=== PATIENT | female | born 1995 | race Two or more races ===

== ENCOUNTER 2018-11-13 16:10 | Observation (INO) | payer MEDICAID ==
[2018-11-13] MEDS ORDERED: LORA-622 PO (16:35)
[2018-11-13] MEDS ORDERED: PREN-145 OR (16:35)
== END 2018-11-13 20:13 | disposition home or self-care (01) | DRG 566 ==
LOC: LDRP 16:10
PROVIDERS: ADMIT Obstetrics & Gynecology; ATTEND Obstetrics & Gynecology
DX: O99.282 Endocrine, nutritional and metabolic diseases complicating pregnancy, second trimester (principal); E86.0 Dehydration; O99.89 Other specified diseases and conditions complicating pregnancy, childbirth and the puerperium; M54.9 Dorsalgia, unspecified; R10.2 Pelvic and perineal pain; Z3A.20 20 weeks gestation of pregnancy
CPT/HCPCS: 59025; 76815; 76817; 81002; G0378

== ENCOUNTER 2018-11-14 11:56 | Emergency (ER) | payer MEDICAID ==
[~2018-11-14] VITALS: Ht 157.5 cm; Wt 97.1 kg
[~2018-11-14 11:56] MED LIST: LORA-622 PO; PREN-145 OR
[2018-11-14 12:31] LABS: Basophils # (auto) 0 uL; Basophils % (auto) 0.1 % (0.0-2.0); Eosinophils # (auto) 0.1 uL; Hematocrit 36.2 % (36.0-46.0); Hemoglobin 12.5 g/dL (12.2-16.2); Lymphocytes # (auto) 1.2 uL; Mean Corpuscular Hemoglobin 30.4 pg (28.0-32.0); Mean Corpuscular Hgb Conc. 34.5 g/dL (32.0-36.0); Mean Corpuscular Volume 88.2 fL (80.0-100.0); Monocytes # (auto) 0.4 uL; Monocytes % (auto) 3.9 % (0.0-12.0); Neutrophils # (auto) 8.6 uL; Platelet Count (auto) 203 10^3/uL (140-450); Red Blood Cells 4.11 10^6/uL (4.0-5.20); White Blood Cell 10.4 10^3/uL (4.4-10.8)
[2018-11-14 12:46] LABS: Albumin 2.7 g/dL (3.4-5.0); Calcium 8.4 mg/dL (8.5-10.1); Potassium 3.9 mmol/L (3.5-5.1)
[2018-11-14 12:49] LABS: BUN/Creatinine Ratio 9.1; Bilirubin, Total 0.5 mg/dL (0.2-1.0); Total Protein 6.6 g/dL (6.4-8.2)
[2018-11-14 13:01] LABS: Urine Bacteria FEW /hpf (None Seen); Urine Blood Negative /uL (Negative); Urine Mucus FEW (None Seen); Urine WBC 1 /hpf (0 - 5)
[2018-11-14] MEDS ORDERED: ONDANSETRON HCL 4 MG/2 ML VIAL IV ONE (13:45)
[2018-11-14] MEDS ORDERED: SODIUM CHLORIDE 0.9% 1,000 ML IV ONE ×2 (13:45→15:00)
[2018-11-14 16:30] VITALS: BP 94/53
== END 2018-11-14 16:57 | disposition home or self-care (01) ==
LOC: ER 11:56
DX: O21.8 Other vomiting complicating pregnancy (principal); O99.282 Endocrine, nutritional and metabolic diseases complicating pregnancy, second trimester; E86.0 Dehydration; O46.92 Antepartum hemorrhage, unspecified, second trimester; Z3A.20 20 weeks gestation of pregnancy
CPT/HCPCS: 36415; 80053; 81001; 84702; 85025; 96361; 96374; 99283; J2405; J7030

== ENCOUNTER 2018-11-24 11:41 | Observation (INO) | payer MEDICAID | END 2018-11-24 12:32 | disposition home or self-care (01) | DRG 566 | LOC: LDRP 11:41 | PROVIDERS: ADMIT Obstetrics & Gynecology; ATTEND Obstetrics & Gynecology | DX: O36.8120 Decreased fetal movements, second trimester, not applicable or unspecified (principal); O26.892 Other specified pregnancy related conditions, second trimester; R51 Headache; Z3A.21 21 weeks gestation of pregnancy | CPT/HCPCS: 59025; 81002; G0378 ==

== ENCOUNTER 2019-02-04 08:34 | Observation (INO) | payer MEDICAID | END 2019-02-04 09:42 | disposition home or self-care (01) | DRG 566 | LOC: LDRP 08:34 | PROVIDERS: ADMIT Specialist; ATTEND Specialist | DX: O26.893 Other specified pregnancy related conditions, third trimester (principal); Z3A.32 32 weeks gestation of pregnancy | CPT/HCPCS: 59025; 76818; 81002; G0378 ==

== ENCOUNTER 2019-02-09 15:46 | Observation (INO) | payer MEDICAID ==
[~2019-02-09] VITALS: Ht 188 cm; Wt 95.3 kg
[2019-02-09] MEDS ORDERED: TERBUTALINE SULFATE 1 MG/ML 1ML VIAL SC SCH (17:30)
[2019-02-09] MEDS ORDERED: LACTATED RINGER'S 1,000 ML IV ONE (17:30)
== END 2019-02-09 18:45 | disposition home or self-care (01) | DRG 566 ==
LOC: LDRP 15:46
PROVIDERS: ADMIT Specialist; ATTEND Specialist
DX: O36.1930 Maternal care for other isoimmunization, third trimester, not applicable or unspecified (principal); O26.893 Other specified pregnancy related conditions, third trimester; N89.8 Other specified noninflammatory disorders of vagina; Z3A.35 35 weeks gestation of pregnancy
CPT/HCPCS: 59025; 76818; 81002; 96372; G0378; J3105; 96365; 96366

== ENCOUNTER 2019-02-12 16:24 | Observation (INO) | payer MEDICAID | END 2019-02-12 17:50 | disposition home or self-care (01) | DRG 566 | LOC: LDRP 16:24 | PROVIDERS: ADMIT Obstetrics & Gynecology; ATTEND Obstetrics & Gynecology | DX: O26.893 Other specified pregnancy related conditions, third trimester (principal); Z3A.33 33 weeks gestation of pregnancy | CPT/HCPCS: 59025; 76818; 81002; G0378 ==

== ENCOUNTER 2019-02-13 17:15 | Observation (INO) | payer MEDICAID | END 2019-02-13 22:07 | disposition other institution (70) | DRG 566 | LOC: LDRP 17:15 | PROVIDERS: ADMIT Specialist; ATTEND Specialist | DX: O26.893 Other specified pregnancy related conditions, third trimester (principal); H53.8 Other visual disturbances; R10.30 Lower abdominal pain, unspecified; R42 Dizziness and giddiness; R11.0 Nausea; R51 Headache; Z3A.33 33 weeks gestation of pregnancy | CPT/HCPCS: 59025; 82962; G0378 ==

== ENCOUNTER 2019-02-13 22:27 | Emergency (ER) | payer MEDICAID ==
[~2019-02-13] VITALS: Ht 157.5 cm; Wt 95.3 kg
[2019-02-13 22:28] VITALS: BP 129/87
[2019-02-13 22:56] LABS: Basophils # (auto) 0.1 uL; Basophils % (auto) 0.6 % (0.0-2.0); Eosinophils # (auto) 0.1 uL; Eosinophils % (auto) 1.4 % (0.0-7.0); Hematocrit 36.9 % (36.0-46.0); Hemoglobin 12.5 g/dL (12.2-16.2); Lymphocytes # (auto) 2.4 uL; Lymphocytes % (auto) 24.3 % (10.0-50.0); Mean Corpuscular Hgb Conc. 33.8 g/dL (32.0-36.0); Mean Corpuscular Volume 88.6 fL (80.0-100.0); Monocytes # (auto) 0.5 uL; Monocytes % (auto) 5.6 % (0.0-12.0); Neutrophils # (auto) 6.6 uL; Neutrophils % (auto) 68.1 % (37.0-80.0); Nucleated Red Blood Cells % 0.1 %; Platelet Count (auto) 188 10^3/uL (140-450); Red Blood Cells 4.17 10^6/uL (4.0-5.20); Red Cell Distribution Width 13.7 % (11.8-14.3); White Blood Cell 9.7 10^3/uL (4.4-10.8)
[2019-02-13 23:12] LABS: Albumin 2.5 g/dL (3.4-5.0); BUN/Creatinine Ratio 9.6; Calcium 8.8 mg/dL (8.5-10.1)
[2019-02-13 23:14] LABS: Bilirubin, Total 0.3 mg/dL (0.2-1.0); Total Protein 6.6 g/dL (6.4-8.2)
[2019-02-13 23:25] LABS: Urine Bacteria NONE SEEN /hpf (None Seen); Urine Blood Negative /uL (Negative); Urine Specific Gravity 1.005 (1.001-1.035); Urine WBC 1 /hpf (0 - 5)
== END 2019-02-13 23:56 | disposition left against medical advice (07) ==
LOC: ER 22:35
DX: R42 Dizziness and giddiness (principal); R51 Headache; Z53.21 Procedure and treatment not carried out due to patient leaving prior to being seen by health care provider
CPT/HCPCS: 36415; 80053; 81001; 85025; 93005

== ENCOUNTER 2019-02-16 16:30 | Observation (INO) | payer MEDICAID | END 2019-02-16 17:15 | disposition home or self-care (01) | DRG 566 | LOC: LDRP 16:30 | PROVIDERS: ADMIT Obstetrics & Gynecology; ATTEND Obstetrics & Gynecology | DX: O36.1130 Maternal care for Anti-A sensitization, third trimester, not applicable or unspecified (principal); O26.893 Other specified pregnancy related conditions, third trimester; N89.8 Other specified noninflammatory disorders of vagina; Z3A.33 33 weeks gestation of pregnancy | CPT/HCPCS: 59025; 76818; 81002; G0378 ==

== ENCOUNTER 2019-02-19 13:44 | Observation (INO) | payer MEDICAID ==
[2019-02-19] MEDS ORDERED: CEFTRIAXONE SODIUM 2 GM in D5W 5% 50 ML IV ONE (15:15)
== END 2019-02-19 17:30 | disposition home or self-care (01) | DRG 566 ==
LOC: LDRP 13:44
PROVIDERS: ADMIT Specialist; ATTEND Specialist
DX: O62.9 Abnormality of forces of labor, unspecified (principal); Z3A.34 34 weeks gestation of pregnancy
CPT/HCPCS: 59025; 76818; 81002; 96365; G0378; J0696; J7060; 96361

== ENCOUNTER 2019-02-23 15:39 | Observation (INO) | payer MEDICAID | END 2019-02-23 17:30 | disposition home or self-care (01) | DRG 566 | LOC: LDRP 15:39 | PROVIDERS: ADMIT Specialist; ATTEND Specialist | DX: O36.1930 Maternal care for other isoimmunization, third trimester, not applicable or unspecified (principal); O62.9 Abnormality of forces of labor, unspecified; Z3A.34 34 weeks gestation of pregnancy | CPT/HCPCS: 59025; 76818; 81002; G0378 ==

== ENCOUNTER 2019-02-26 11:31 | Observation (INO) | payer MEDICAID | END 2019-02-27 18:20 | disposition home or self-care (01) | DRG 566 | LOC: LDRP 02-27 15:49 | PROVIDERS: ADMIT Specialist; ATTEND Specialist | DX: O36.1930 Maternal care for other isoimmunization, third trimester, not applicable or unspecified (principal); Z3A.35 35 weeks gestation of pregnancy | CPT/HCPCS: 59025; 76818; 81002; G0378 ==

== ENCOUNTER 2019-03-02 16:00 | Observation (INO) | payer MEDICAID ==
[~2019-03-02] VITALS: Ht 157.5 cm; Wt 97.1 kg
[2019-03-02] MEDS ORDERED: TERBUTALINE SULFATE 1 MG/ML 1ML VIAL SC SCH (17:30)
== END 2019-03-02 19:00 | disposition home or self-care (01) | DRG 566 ==
LOC: LDRP 16:00
PROVIDERS: ADMIT Obstetrics & Gynecology; ATTEND Obstetrics & Gynecology
DX: O62.9 Abnormality of forces of labor, unspecified (principal); O28.3 Abnormal ultrasonic finding on antenatal screening of mother; Z3A.35 35 weeks gestation of pregnancy
CPT/HCPCS: 59025; 76818; 81002; 96372; G0378; J3105

== ENCOUNTER 2019-03-04 18:20 | Observation (INO) | payer MEDICAID ==
[~2019-03-04] VITALS: Ht 157.5 cm; Wt 97.1 kg
[~2019-03-04 18:20] MED LIST changes: -LORA-622 PO
[2019-03-04] MEDS ORDERED: TERBUTALINE SULFATE 1 MG/ML 1ML VIAL SC SCH (18:30)
[2019-03-04] MEDS ORDERED: BETAMETHASONE ACET (6MG/ML) 5ML VIAL ONE (18:54)
[2019-03-04] MEDS ORDERED: TERBUTALINE SULFATE 1 MG/ML 1ML VIAL SC ONE (18:54)
[2019-03-04] MEDS ORDERED: BETAMETHASONE ACET (6MG/ML) 5ML VIAL IM SCH (19:00)
[2019-03-05] MEDS ORDERED: BETAMETHASONE ACET (6MG/ML) 5ML VIAL IM SCH (10:00)
[2019-03-05] MEDS ORDERED: NIF10C GT (16:52)
== END 2019-03-04 19:46 | disposition home or self-care (01) | DRG 563 ==
LOC: LDRP 18:20
PROVIDERS: ADMIT Obstetrics & Gynecology; ATTEND Obstetrics & Gynecology
DX: O60.03 Preterm labor without delivery, third trimester (principal); O26.893 Other specified pregnancy related conditions, third trimester; N89.8 Other specified noninflammatory disorders of vagina; Z3A.36 36 weeks gestation of pregnancy
CPT/HCPCS: 59025; 81002; 96372; G0378; J0702; J3105

== ENCOUNTER 2019-03-05 13:00 | Observation (INO) | payer MEDICAID ==
[~2019-03-05] VITALS: Ht 30.5 cm; Wt 0.5 kg
[2019-03-05] MEDS ORDERED: BETAMETHASONE ACET (6MG/ML) 5ML VIAL IM ONE (13:15)
[2019-03-05] MEDS ORDERED: LACTATED RINGER'S 1,000 ML IV ONE (13:37)
[2019-03-05] MEDS ORDERED: TERBUTALINE SULFATE 1 MG/ML 1ML VIAL SC ONE (13:44)
[2019-03-05] MEDS ORDERED: TERBUTALINE SULFATE 1 MG/ML 1ML VIAL SC SCH (13:45)
[2019-03-05] MEDS ORDERED: NIFEdipine 10 MG CAP PO ONE (14:45)
[2019-03-05] MEDS ORDERED: NIFEdipine 10 MG CAP ONE (14:49)
[2019-03-05] MEDS ORDERED: NIF10C GT (16:52)
== END 2019-03-05 15:40 | disposition home or self-care (01) | DRG 566 ==
LOC: LDRP 13:00
PROVIDERS: ADMIT Specialist; ATTEND Specialist
DX: O62.9 Abnormality of forces of labor, unspecified (principal); Z3A.36 36 weeks gestation of pregnancy
CPT/HCPCS: 59025; 76818; 81002; 96372; G0378; J3105

== ENCOUNTER 2019-03-09 15:57 | Observation (INO) | payer MEDICAID ==
[~2019-03-09 15:57] MED LIST changes: +NIF10C GT
== END 2019-03-09 17:10 | disposition home or self-care (01) | DRG 563 ==
LOC: LDRP 15:57
PROVIDERS: ADMIT Specialist; ATTEND Specialist
DX: O60.03 Preterm labor without delivery, third trimester (principal); O26.893 Other specified pregnancy related conditions, third trimester; R11.0 Nausea; Z3A.36 36 weeks gestation of pregnancy
CPT/HCPCS: 59025; 76818; 81002; G0378

== ENCOUNTER 2019-03-10 15:45 | Inpatient (IN) | payer MEDICAID ==
[~2019-03-10] VITALS: Ht 1 cm; Wt 0.5 kg
[2019-03-10] MEDS ORDERED: LACTATED RINGER'S 1,000 ML IV ONE ×2 (16:55→19:15)
[2019-03-10] MEDS ORDERED: NIFEdipine 10 MG CAP PO ONE (16:55)
[2019-03-10] MEDS: NIFEdipine 10 MG CAP PO SCH (21:16)
[2019-03-10] MEDS ORDERED: LACTATED RINGER'S 1,000 ML IV SCH (21:30)
[2019-03-10 21:39] LABS: Basophils # (auto) 0 uL; Basophils % (auto) 0.3 % (0.0-2.0); Eosinophils # (auto) 0.1 uL; Eosinophils % (auto) 0.6 % (0.0-7.0); Hematocrit 35.8 % (36.0-46.0); Hemoglobin 11.8 g/dL (12.2-16.2); Lymphocytes % (auto) 22.4 % (10.0-50.0); Mean Corpuscular Hemoglobin 28.6 pg (28.0-32.0); Mean Corpuscular Hgb Conc. 33.1 g/dL (32.0-36.0); Mean Corpuscular Volume 86.6 fL (80.0-100.0); Monocytes # (auto) 0.7 uL; Neutrophils # (auto) 9.5 uL; Neutrophils % (auto) 71.7 % (37.0-80.0); Platelet Count (auto) 188 10^3/uL (140-450); Red Blood Cells 4.14 10^6/uL (4.0-5.20); Red Cell Distribution Width 13.9 % (11.8-14.3); White Blood Cell 13.2 10^3/uL (4.4-10.8)
[2019-03-10 21:52] LABS: Albumin 2.4 g/dL (3.4-5.0); Calcium 8.1 mg/dL (8.5-10.1); Potassium 3.8 mmol/L (3.5-5.1)
[2019-03-10 21:53] LABS: INR < 0.93 (0.9-1.15); Partial Thromboplastin Time 27.3 sec (23.64-32.05)
[2019-03-10 21:55] LABS: Bilirubin, Total 0.4 mg/dL (0.2-1.0); Total Protein 6.4 g/dL (6.4-8.2)
[2019-03-10 22:28] LABS: Urine Bacteria FEW /hpf (None Seen); Urine Blood 3+ /uL (Negative); Urine Specific Gravity 1.012 (1.001-1.035); Urine WBC 47 /hpf (0 - 5)
[2019-03-10] MEDS ORDERED: TERBUTALINE SULFATE 1 MG/ML 1ML VIAL SC ONE (23:30)
[2019-03-10] MEDS ORDERED: cefTRIAXone 1GM/50ML D5W 50 ML IV SCH (23:45)
[2019-03-11] VITALS (15 sets, daily range): BP systolic 93–111; BP diastolic 50–78
[2019-03-11] MEDS: NIFEdipine 10 MG CAP PO SCH ×2 (01:31→06:08)
[2019-03-11 02:39] LABS: Alcohol, Urine < 3.0 mg/dL (0-5); Amphetamine Screen, Urine NEGATIVE (NEGATIVE); Barbiturate Scree,Urine NEGATIVE (NEGATIVE); Benzodiazephine Screen, Urine NEGATIVE (NEGATIVE); Cannabinoid Screen, Urine NEGATIVE (NEGATIVE); Cocaine Screen, Urine NEGATIVE (NEGATIVE); Opiate Scree,Urine NEGATIVE (NEGATIVE); Phencyclidine Screen, Urine NEGATIVE (NEGATIVE)
[2019-03-11] MEDS ORDERED: TETRACAINE 1% INJ 2 ML VIAL IJ ONE (08:14)
[2019-03-11] MEDS ORDERED: MORPHINE SULF(PF) 0.5MG/ML 10ML VIAL ONE (08:49)
[2019-03-11] MEDS ORDERED: ePHEDrine SULFATE 50 MG/ML AMP ONE (08:50)
[2019-03-11] MEDS ORDERED: PHENYLEPHRINE HCL 10 MG/ML VL ONE (08:50)
[2019-03-11] MEDS ORDERED: OXYTOCIN 10 UNIT/ML 10ML VIAL ONE (08:51)
[2019-03-11] MEDS ORDERED: cefTRIAXone 1GM/50ML D5W 50 ML IV ONE (08:55)
[2019-03-11] MEDS ORDERED: cefTRIAXone SOD 1,000 MG VL ONE (08:55)
[2019-03-11] MEDS ORDERED: METOCLOPRAMIDE HCL 5MG/ml INJ 2ml VIAL ONE (09:26)
[2019-03-11] MEDS ORDERED: MIDAZOLAM HCL 1MG/1ML-2 ML VIAL ONE (09:39)
[2019-03-11] MEDS ORDERED: LACTATED RINGER'S 1,000 ML IV SCH (10:19)
[2019-03-11] MEDS ORDERED: diphenhdrAMINE HCL 50 MG/1 ML VL IV PRN (10:30)
[2019-03-11] MEDS ORDERED: ONDANSETRON HCL 4 MG/2 ML VIAL IV PRN ×3 (10:30)
[2019-03-11] MEDS ORDERED: ePHEDrine SULFATE 50 MG/ML AMP IV PRN (10:30)
[2019-03-11] MEDS ORDERED: NALOXONE HCL 0.4 MG/ML VIAL IV PRN ×2 (10:30)
[2019-03-11] MEDS ORDERED: ACETAMINOPHEN IV 1000 MG/100ML (10MG/ML) IV ONE ×2 (10:30→12:30)
[2019-03-11] MEDS ORDERED: HYDROmorphone HCL 2 MG/ML VL IV PRN ×2 (10:30)
[2019-03-11] MEDS ORDERED: KETOROLAC TROMETH 30 MG/ML 1ML VIAL IV PRN (10:30)
--- NOTE | 2019-03-11 11:10 | NUR ---
Post Op for LDRP: Received patient from PACU via bed to room 108. Patient A/A/Ox4, abdominal binder and bilateral SCD's are in place, IV fluids placed on pump and infusing per order, incisional site dressing clean/dry/intact and Wolfe Catheter to gravity draining clear yellow urine. Incentive Spirometer at bedside and instruction on proper use with return demonstration done by patient. Fundus firm 1 below Umbilicus. Patient states feels a little itchy , wants no medication at this time.
--- NOTE | 2019-03-11 12:20 | NUR ---
Report given to Lizzeth Mallory RN who will assume patient care.
--- NOTE | 2019-03-11 12:20 | NUR ---
Report received from Rachel Faustin RN on stable pt. Assumed care.
--- NOTE | 2019-03-11 15:30 | NUR ---
Demar care performed, new underpad and demar pad provided.
--- NOTE | 2019-03-11 18:05 | NUR ---
Report given to Vinicio Tsai RN on stable pt. Relinquished care. Addendum: 03/11/19 at 1833 by Dixie Mallory RN Amended: Links added.
[2019-03-11] MEDS ORDERED: cefTRIAXone 1GM/50ML D5W 50 ML IV SCH (21:00)
--- NOTE | 2019-03-12 02:45 | NUR ---
INCISIONAL DRESSING REMOVED, INCISION CLEAN DRY AND INTACT NO REDNESS OR DRAINAGE NOTED. 11 JODY INTACT AND OPEN TO AIR PER ORDER.
[2019-03-12 02:59] VITALS: BP 103/64
--- NOTE | 2019-03-12 05:05 | NUR ---
Lerner catheter dc'd Order to discontinue lerner catheter. Lerner dc'd with clean technique following deflation of balloon, 10 ml. Patient tolerated well with no complaints of pain. 1500ml yellow urine output. Continue care.
[2019-03-12 06:06] LABS: RPR Non Reactive (Non Reactive)
--- NOTE | 2019-03-12 06:09 | NUR ---
Report received from Vinicio Tsai RN on stable pt. Assumed care. Addendum: 03/12/19 at 0624 by Dixie Mallory RN Amended: Links added.
[2019-03-12 06:41] LABS: Basophils # (auto) 0 uL; Basophils % (auto) 0.3 % (0.0-2.0); Eosinophils # (auto) 0 uL; Eosinophils % (auto) 0.2 % (0.0-7.0); Hematocrit 27.5 % (36.0-46.0); Hemoglobin 9.4 g/dL (12.2-16.2); Lymphocytes # (auto) 2.3 uL; Lymphocytes % (auto) 17.9 % (10.0-50.0); Mean Corpuscular Hemoglobin 29.5 pg (28.0-32.0); Mean Corpuscular Hgb Conc. 34.3 g/dL (32.0-36.0); Mean Corpuscular Volume 85.9 fL (80.0-100.0); Monocytes % (auto) 7.7 % (0.0-12.0); Neutrophils # (auto) 9.4 uL; Neutrophils % (auto) 73.9 % (37.0-80.0); Platelet Count (auto) 158 10^3/uL (140-450); Red Cell Distribution Width 13.5 % (11.8-14.3); White Blood Cell 12.7 10^3/uL (4.4-10.8)
[2019-03-12 07:05] VITALS: BP 108/67
--- NOTE | 2019-03-12 07:05 | NUR ---
Lower abdominal incision open to air, well approximated with 11 cynthia intact. No redness, drainage, or bleeding noted. Abdominal binder in place. Incentive spirometer at bedside, pt educated on use and return demonstration provided by pt. Addendum: 03/12/19 at 0850 by Dixie Mallory RN Amended: Links added.
[2019-03-12] MEDS ORDERED: cefTRIAXone 1GM/50ML D5W 50 ML IV SCH (09:00)
--- NOTE | 2019-03-12 09:34 | NUR ---
Dr. Medina called and informed of CBC results, to include Hgb 9.4 and Hct 27.5. No new orders received at this time.
[2019-03-12] MEDS ORDERED: HYDROcodone-ACET 5/325MG TAB PO PRN ×2 (09:45)
[2019-03-12] MEDS ORDERED: BISACODYL 10 MG RECT SUPP PR PRN (09:45)
[2019-03-12] MEDS ORDERED: DOCUSATE CALCIUM 240 MG CAP PO SCH (10:00)
[2019-03-12] MEDS: DOCUSATE SOD 100 MG CAP PO SCH ×2 (10:02→22:51)
[2019-03-12 11:30] VITALS: BP 115/63
[2019-03-12] MEDS: SIMETHICONE 80 MG CHEWABLE TABLET PO SCH ×3 (11:41→22:51)
[2019-03-12 15:30] VITALS: BP 131/77
--- NOTE | 2019-03-12 15:48 | NUR ---
Pt had moderate sized BM.
[2019-03-12] MEDS: IBUPROFEN 800 MG TAB PO PRN (15:56)
--- NOTE | 2019-03-12 18:30 | NUR ---
Report given to Vinicio Tsai RN on stable pt. Relinquished care. Addendum: 03/12/19 at 1833 by Dixie Mallory RN Amended: Links added.
[2019-03-12 19:30] VITALS: BP 116/47
[2019-03-12 23:30] VITALS: BP 115/69
[2019-03-13] MEDS: IBUPROFEN 800 MG TAB PO PRN (01:29)
[2019-03-13 03:00] VITALS: BP 102/59
--- NOTE | 2019-03-13 04:00 | NUR ---
Bottle-feeding Education: Patient encouraged to breastfeed multiple times. Benefits of and the risk of providing formula to infant was discussed. Patient verbalized understanding of the benefits and is aware of risk and insists on bottle-feeding. Formula provided and instruction on formula preperation from the [facility] Beginning booklet reviewed with patient.
[2019-03-13] MEDS: SIMETHICONE 80 MG CHEWABLE TABLET PO SCH (05:46)
[2019-03-13 07:15] VITALS: BP 105/71
[2019-03-13 11:00] VITALS: BP 113/80
[2019-03-13] MEDS ORDERED: TETANUS-DIPTH-ACEL PERTUSSIS 0.5ML SYRG IM ONE (14:00)
--- NOTE | 2019-03-13 15:15 | NUR ---
Discharge: Discharge instructions given as ordered. Pt encouraged to follow up with [employer] as instructed. All questions and concerns addressed. Patient verbalized understanding. Medication reconciliation completed and copy given to patient. All required/requested vaccines given and copies of vaccinations given to patient. Patient encouraged to prepare to depart unit.
--- NOTE | 2019-03-13 15:15 | NUR ---
Discharge: Discharge instructions given to mother of baby as ordered. Copies of and hearing screening, along with vaccination record given to mother. Mother encouraged to follow up with [facility] of choice and to give envelope with infants information to cap maker at 1st office visit. All questions and concerns addressed. Mother of baby verbalized understanding and agreed to comply. Mother of baby encouraged to prepare for departure and notify RN ready to leave room for ID band removal/verification and car seat check.
[2019-03-13 15:18] VITALS: BP 116/67
[2019-03-13 15:25] VITALS: BP 116/67
--- NOTE | 2019-03-13 15:25 | NUR ---
Discharge: Patient taken to vehicle via wheelchair with all personal belongings, accompanied by staff and family member. No distress noted at time of departure, no adverse changes in status since initial assessment.
--- NOTE | 2019-03-13 15:25 | NUR ---
Discharge: ID bands matched and ID verification form signed and witnessed. One ID band was removed and placed in chart. Infant taken to vehicle, accompanied by staff, mother of baby, and family member along with all personal belongings. secured in rear-facing car seat by parent and verified by staff. No distress or adverse changes in status since initial assessment was noted at time of departure.
== END 2019-03-13 15:25 | disposition home or self-care (01) | DRG 540 ==
LOC: LDRP 15:45 → OBSVTOIN 03-11 06:20 → LDRP 03-11 10:19
PROVIDERS: ADMIT Specialist; ATTEND Specialist
PROC: 0DNU0ZZ Release Omentum, Open Approach (ICD-10-PCS; 2019-03-11)
PROC: 0DNW0ZZ Release Peritoneum, Open Approach (ICD-10-PCS; 2019-03-11)
PROC: 10D00Z1 Extraction of Products of Conception, Low, Open Approach (ICD-10-PCS; principal; 2019-03-11 09:00)
PROC: 3E0234Z Introduction of Serum, Toxoid and Vaccine into Muscle, Percutaneous Approach (ICD-10-PCS; 2019-03-13)
DX: O99.62 Diseases of the digestive system complicating childbirth (principal); E66.01 Morbid (severe) obesity due to excess calories; O34.211 Maternal care for low transverse scar from previous cesarean delivery; K66.0 Peritoneal adhesions (postprocedural) (postinfection); Z37.0 Single live birth; O99.214 Obesity complicating childbirth; Z88.0 Allergy status to penicillin; Z3A.36 36 weeks gestation of pregnancy; Z23 Encounter for immunization
CPT/HCPCS: 36415; 51702; 59025; 76815; 76818; 80053; 80307; 81001; 81002; 84112; 85025; 85610; 85730; 86592; 86850; 86870; 86880; 86900; 86901; 86905; 86906; 86971; 87210; 90715; 96361; 96365; 96366; 96372; G0378; J0131; J0696; J1885; J2250; J2590